=== PATIENT | female | born 1985 | race Caucasian/White ===

== ENCOUNTER 2020-01-17 11:15 | Emergency (ER) | payer OTHER, SELFPAY ==
--- NOTE | ~2020-01-17 | XR_ITS ---
XR hand RT min 3V 01/17/2020 11:25 Indication: Right hand pain Procedure: 3 views right hand Comparison: No prior studies for comparison. Findings: There is an oblique nondisplaced fourth metacarpal fracture. No other fracture. Mild degene rative changes of the first finger. No significant soft tissue abnormality. Impression: 1: Oblique nondisplaced distal diaphyseal fracture of the right fourth metacarpal. Reviewed, dictated and finalized at location A. Impression: 1: Oblique nondisplaced distal diaphyseal fracture of the right fourth metacarp al.
[2020-01-17 11:17] VITALS: BP 118/66; PULSE 52; RESP 18; TEMP 36.1; O2SAT 100
--- NOTE | 2020-01-17 11:17 | ED.UPPEXIN ---
HPI - Extremity Injury (Upper) General Chief Complaint: Extremity Injury, Upper Stated Complaint: Wrist Pain Time Seen by Provider: 01/17/20 11:17 Source: patient and RN notes reviewed Mode of arrival: ambulatory Limitations: no limitations History of Present Illness HPI narrative: This is a 34 years old female presents to the office for an evaluation of right hand injury since yesterday morning. She accidentally fell and her right hand got caught between wrought iron railing. MD complaint: injury to: right and hand Onset (ago): day(s) (1) Other Extremity Injury: Right: fingers (4-5 fingers) Other injuries: none Place: home Severity: moderate Relieving factors: immobilization and rest Exacerbating factors: movement of extremity Context: fall Associated symptoms: denies other symptoms Treatments prior to arrival: NSAIDS (one dose since yesterday) Related Data Home Medications Medication Instructions Recorded Confirmed sertraline 50 mg DAILY 10/09/19 01/17/20 Allergies Allergy/AdvReac Type Severity Reaction Status Date / Time cefazolin Allergy Mild Rash Verified 01/17/20 11:16 Review of Systems Review of Systems: Narrative: CONSTITUTIONAL: Denies feeling ill CARDIOVASCULAR: Denies chest pain RESPIRATORY: Denies dyspnea GASTROINTESTINAL: Denies nausea, vomiting SKIN: Denies skin abrasion/cut MUSCULOSKELETAL: Reports right hand pain, swollen NEUROLOGIC: Denies lightheaded or dizziness prior to accident PMFSH Past Medical History Medical History (Updated 01/17/20 @ 11:53 by PUMA Medina) Depression Social History Social History Gender identity (if verbalized by the patient): Female Comments At time of signature, I agree with nursing past medical, surgical, social and family history. There is no relevant family history pertinent to the presenting complaint. Exam Narrative: Exam Narrative: GENERAL: This is a well-nourished, well-developed patient, in no apparent distress. SKIN: warm, intact with no suspicious lesions or rash, good texture and turgor. NEURO: awake, alert, and oriented to person, place and time. There were no obvious focal neurologic abnormalities. Steady gait EXTREMITIES: The dorsum of the hand is diffusely swollen and tender over fourth and fifth metarcarpals. The skin is intact. Flexion and extension of the fingers is full and strong. ROM of bilateral wrists. Robert Coma Scale Eye Opening: Spontaneous 4 [place] Coma Scale Motor: Obeys Commands 6 Robert Coma Scale Verbal: Oriented 5 Course Vital Signs Vital signs: Vital Signs Temperature 97.0 F L 01/17/20 11:17 Pulse Rate 52 L 01/17/20 11:17 Respiratory Rate 18 01/17/20 11:17 Blood Pressure 118/66 01/17/20 11:17 Pulse Oximetry 100 01/17/20 11:17 Temperature 97.0 F L 01/17/20 11:17 Pulse Rate 52 L 01/17/20 11:17 Respiratory Rate 18 01/17/20 11:17 Blood Pressure 118/66 01/17/20 11:17 Pulse Oximetry 100 01/17/20 11:17 MDM - Extremity Injury (Upper) MDM Narrative Medical decision making narrative: Discharge instructions reviewed with patient, as well as provided in writing per nursing staff. The instructions also include specific and strict return/GO TO THE ER as well as f/u information. All questions have been answered, and the patient deny any further questions with discharge and discharge plan. Differential Diagnosis Differential diagnosis: Likely finger sprain and fracture of hand Imaging Data Attestation: I personally reviewed and interpreted this imaging study as follows: My impression: see report Radiologist's impression: XR hand RT min 3V 01/17/2020 11:25 Indication: Right hand pain Procedure: 3 views right hand Comparison: No prior studies for comparison. Findings: There is an oblique nondisplaced fourth metacarpal fracture. No other fracture. Mild degenerative changes of the first finger. No significant s
== END 2020-01-17 12:12 | disposition home or self-care (01) ==
PROVIDERS: Emergency Provider Nurse Practitioner
DX: S62.304A Unspecified fracture of fourth metacarpal bone, right hand, initial encounter for closed fracture (principal); W19.XXXA Unspecified fall, initial encounter; F32.9 Major depressive disorder, single episode, unspecified
CPT/HCPCS: 29125; 73130; 99214; G0463

== ENCOUNTER 2020-07-01 08:58 | Outpatient (CLI) | payer OTHER, SELFPAY ==
--- NOTE | ~2020-07-01 | MR_ITS ---
EXAMINATION: MR knee LT wo con DATE: 07/01/2020 09:45 INDICATION: Left knee popping and pain. TECHNIQUE: Magnetic resonance imaging (MRI) of the left knee was performed without intravenous contra st. Sequences included axial PD-weighted FS FSE, coronal PD-weighted FSE and PD-weighted FS FSE, sagi ttal PD-weighted FSE, and sagittal T2-weighted FS FSE. COMPARISON: None. FINDINGS: Medial compartment: Medial meniscus is normal. There is cartilage surface irregularity of femoral condyle involving the c entral articular surface. Tibial cartilage is normal. Lateral compartment: Lateral meniscus is normal. There is cartilage surface area of tibial condyle at the central articula r surface. There is deep cartilage fissuring of femoral condyle involving the central articular surfa ce. Patellofemoral compartment: There is deep partial thickness cartilage loss of patellar median ridge and the adjacent aspects of m edial and lateral facets. There is deep partial thickness cartilage loss of central trochlea. Ligaments and tendons: There is a complete tear of anterior cruciate ligament. Posterior cruciate ligament is normal. Medial collateral ligament and lateral collateral ligament complex are normal. There is mild patellar tendi nopathy. Fluid: There is a small knee joint effusion. There is trace fluid in a Askew's cyst. IMPRESSION: 1. Moderate chondrosis of patellofemoral compartment and mild chondrosis of medial and lateral compar tments. 2. Complete tear of anterior cruciate ligament. 3. Small knee joint effusion. Reviewed, dictated and finalized at location A. IMPRESSION: 1. Moderate chondrosis of patellofemoral compartment and mild chondrosis of med ial and lateral compartments. 2. Complete tear of anterior cruciate ligament. 3. Small knee joint effusion.
== END 2020-07-01 08:59 ==
PROVIDERS: PCP Physician Assistant; Visit Provider Internal Medicine
DX: S83.512A Sprain of anterior cruciate ligament of left knee, initial encounter (principal); X58.XXXA Exposure to other specified factors, initial encounter; M25.462 Effusion, left knee
CPT/HCPCS: 73721

== ENCOUNTER 2022-12-09 08:06 | Emergency (ER) | payer OTHER, SELFPAY ==
--- NOTE | ~2022-12-09 | XR_ITS ---
EXAMINATION: XR ankle RT min 3V DATE: 12/09/2022 08:37 INDICATION: Right ankle injury and pain. TECHNIQUE: 4 views of right ankle were obtained. COMPARISON: None. FINDINGS: Bone alignment is normal. No fracture. There is mild osteoarthritis of talonavicular joint. There is an enthesophyte at posterior aspect of calcaneal tuberosity. Ankle soft tissue swelling is noted. IMPRESSION: 1. No fracture. Reviewed, dictated and finalized at location D. [employer] IMPRESSION: 1. No fracture.
[2022-12-09 08:12] VITALS: BP 103/69; PULSE 67; RESP 16; TEMP 36.4; O2SAT 100
--- NOTE | 2022-12-09 08:14 | ED.LOWEXIN ---
HPI - Extremity Injury (Lower) General Chief Complaint: Extremity Injury, Lower Stated Complaint: rt ankle injury Time Seen by Provider: 12/09/22 08:20 Source: patient, RN notes reviewed and old records reviewed Mode of arrival: ambulatory Limitations: no limitations History of Present Illness HPI Narrative: 37 year old female who presents to express care with complaints of falling and injuring her right ankle which occurred yesterday while rock climbing at the gym. She reports pain to outer ankle region with swelling noted and inner ankle pain along medial heel below ankle bone. Patient is able to flex and extend toes but is painful, patient has noted swelling to lateral ankle region. Patient reports that she has been taking Ibuprofen and using ice to her ankle. Patient denies any tingling or numbness to her right foot or toes, with strong pulses to right foot and brisk capillary refill of nail beds of right foot. MD complaint: ankle injury Onset (ago): day(s) (1) Injury: Right: ankle Place: other (at gym) Severity scale (1-10): 6 Relieving factors: cold therapy and rest Exacerbating factors: weight bearing Treatments prior to arrival: cold therapy and other (Ibuprofen) Related Data Home Medications Medication Instructions Recorded Confirmed bupropion HCl 300 mg 24 hr tablet, 300 mg PO DAILY 12/09/22 12/09/22 extended release escitalopram oxalate 20 mg tablet 20 mg PO DAILY 12/09/22 12/09/22 Allergies Allergy/AdvReac Type Severity Reaction Status Date / Time cefazolin Allergy Mild Rash Verified 12/09/22 08:30 Review of Systems Review of Systems: CONSTITUTIONAL: Denies fever, chills, or sweats. CARDIOVASCULAR: Denies chest pain, palpitations, or edema. RESPIRATORY: Denies cough or dyspnea. SKIN: Denies rash or itching. Denies laceration or abrasions MUSCULOSKELETAL: Reports injury to her right ankle rock climbing yesterday at the gym with swelling and discomfort to medial and lateral ankle NEUROLOGIC: Denies numbness, or weakness. All systems reviewed & are unremarkable except as noted in HPI and below PMFSH Past Medical History Medical History (Updated 12/09/22 @ 08:57 by Teresa Rodríguez NP) Depression Endometriosis Surgical History Surgical History (Updated 12/09/22 @ 08:34 by Teresa Rodríguez NP) H/O breast augmentation History of repair of anterior cruciate ligament of right knee Hx of laparoscopy for endometriosis Family History Family History (Updated 12/09/22 @ 08:24 by Teresa Rodríguez NP) Father Hypertension Lung cancer Acute myocardial infarction Mother Hypertension Sibling Arrhythmia Social History Social History (Updated 12/09/22 @ 19:40 by Teresa Rodríguez NP) Smoking status: Never smoker Alcohol intake: current Alcohol use details: social Substance use type: does not use Living arrangements: with family Gender identity (if verbalized by the patient): Female Comments At time of signature, agree with nursing past medical, surgical, social and family history. There is no relevant family history pertinent to the presenting complaint Exam Narrative: GENERAL: Well-appearing, well-nourished, and in no acute distress. HEAD: Normocephalic, atraumatic. EYES: PERRLA and EOMI. ENT: Nares clear, no rhinorrhea or epistaxis. Mucous membranes moist.TM's normal with good light reflex, throat pink with no lesions or exudates. NECK: Supple.no lymphadenopathy CHEST: Clear to auscultation. No respiratory distress.SAO2 100% on room air HEART: Regular rate and rhythm. No murmur heard. Normal peripheral pulses. ABDOMEN: Soft, nontender, nondistended, normal active bowel sounds. EXTREMITIES: Normal range of motion. No edema.Exception noted to right lateral right ankle with pain to bilateral ankle areas with most swelling to lateral aspect of right ankle. SKIN: Warm, dry, no rash. NEURO: No focal deficits. Alert and oriented x3. Course Course Emergency Course: Sherry
== END 2022-12-09 08:59 | disposition home or self-care (01) ==
PROVIDERS: Emergency Provider Registered Nurse; PCP Physician Assistant
DX: S93.401A Sprain of unspecified ligament of right ankle, initial encounter (principal); S96.911A Strain of unspecified muscle and tendon at ankle and foot level, right foot, initial encounter; W19.XXXA Unspecified fall, initial encounter; Y93.31 Activity, mountain climbing, rock climbing and wall climbing; F32.9 Major depressive disorder, single episode, unspecified; N80.9 Endometriosis, unspecified
CPT/HCPCS: 73610; 99213; G0463

== ENCOUNTER 2024-05-12 00:58 | Day surgery (SDC) | payer BC, SELFPAY ==
--- NOTE | 2024-05-06 16:32 | PC.NURSE ---
Report to the Outpatient Waiting Room, entrance under the green pavilion located off [facility], at 1000 on 05-12-24. Planned Procedure Time: 1200. Time changes happen often and if your time is changed the preop area will call you the afternoon before. - You and your visitor will be asked to self-screen and do not enter if you have any COVID symptoms. - A mask is optional within the hospital at this time. Patients may have clear liquids (water, carbonated beverages, clear teas, apple juice) until 3 hours prior to surgery with a maximum of 20 ounces. 0900 - No food from midnight until time of surgery - Infants may have breast milk until 4 hours before surgery, formula 6 hours prior to surgery. - Children will be allowed to drink immediately following surgery. If applicable, please bring a bottle or sippy cup to assist with drinking. Juice, water, soda, and popsicles are readily available. For infants on formula, please bring formula the day of surgery. Pacifiers are allowed. Take the following medications with a SIP of water the morning of surgery: bupropion, desvenlafaxine DO NOT STOP ANY OF YOUR OTHER PRESCRIPTION MEDICATIONS PRIOR TO SURGERY ?EXCEPT THE FOLLOWING Medications to discontinue per physician: N/A Please no make-up, nail argentine, hairspray, perfume, deodorant, or body powder the day of surgery. No jewelry (including any body piercings) or valuables the day of surgery, leave them at home. Please take a shower or bath the night before, or the morning of, surgery with an antibacterial soap. Wear comfortable, loose fitting clothing. Children are encouraged to wear pajamas. - Jewelry must be removed prior to entering the operating room. Rings and piercings that are not removed may be cut off. - The hospital will not accept responsibility for valuables. - Please leave all valuables, including medications, at home the day of surgery. If you are going home after surgery, a licensed stage driver must drive you home. - NO public transportation without another adult if you receive anesthesia. - We recommend that an adult stay with you for 24 hours following discharge. - We also recommend that you do not drive, make important decision, drink alcoholic beverages, or take any drugs that were not prescribed by your health care provider for at least 24 hours after your discharge time. For Pediatric surgeries, we recommend two adults accompany the child home. Follow any additional instructions given to you from your surgeon. If you or anyone in your household have experienced Covid symptoms in the past week, please notify your surgeon or the nurse liaison at the phone number below for possible testing. Telephone instructions given to Eddie Basilio and asked if any additional questions and then verbalized understanding. Patient advised to call surgeon office or pre surgery nurse liaison [phone] if any additional questions.
[2024-05-06 16:37] VITALS: BMI 24.3
[2024-05-12] VITALS (7 sets, daily range): BP systolic 106–118; BP diastolic 63–75; PULSE 52–79; RESP 12–20; TEMP 36.8; O2SAT 99–100
[2024-05-12] MEDS: ACETAMINOPHEN 500 MG TABLET 1000 MG PO (10:55)
[2024-05-12] MEDS: KETOROLAC 15 MG/ML VIAL (*BKC) IV PUSH (11:04)
[2024-05-12 11:19] LABS: BEDSIDEPREGUCG Negative
[2024-05-12] MEDS: LIDOCAINE HCL 1% LOCAL INJ 20 ML VIAL 10 ML INFILTRATE (11:39)
--- NOTE | 2024-05-12 11:41 | P.PNAN_ITS ---
Anes - Initial Pre Proc Eval Procedure: Operation Date: 05/12/24 12:00 Proposed Procedures p Laparoscopic Bilateral Tubal Sterilization with Fallopian Rings - Chay Barnes MD Date/Time: 05/12/24 11:41 Surgeon: Chay Barnes MD Pre Op Diagnosis: desire steril Patient Data Age: 39 Gender: F Height: 1.73 m Weight: 72.55 kg Last Vital Signs Temp 36.8 C 05/12/24 10:28 Pulse 54 L 05/12/24 10:28 Resp 20 05/12/24 10:28 BP 106/65 05/12/24 10:28 Pulse Ox 100 05/12/24 10:28 O2 Del Method Room Air 05/12/24 10:28 Allergies Allergy/AdvReac Type Severity Reaction Status Date / Time cefazolin Allergy Mild Rash Verified 05/12/24 10:22 Home Medications Medication Instructions Recorded Confirmed Type bupropion HCl 100 mg tablet,12 hr 100 mg PO BID 05/06/24 05/12/24 History sustained-release desvenlafaxine succinate 100 mg 100 mg PO DAILY 05/06/24 05/12/24 History tablet,extended release 24 hr Laboratory Tests 05/12/24 10:28 POC Urine HCG, Qual Negative POC Ur Preg QC Yes Patient hx anesthesia problems: none Family hx anesthesia problems: none Results Review: All pre-operative results and documents have been reviewed as part of the pre- operative evaluation. [facility] Past Medical History Medical History Depression Endometriosis Surgical History Surgical History H/O breast augmentation History of repair of anterior cruciate ligament of right knee Hx of laparoscopy for endometriosis Family History Family History Father Hypertension Lung cancer Acute myocardial infarction Mother Hypertension Sibling Arrhythmia Social History Social History Smoking status: Never smoker Second hand tobacco smoke exposure: No Alcohol intake: current Alcohol use details: rarely Substance use: current Substance use type: marijuana Other substance usage details: edibles; occasionally Living arrangements: with family Gender identity (if verbalized by the patient): Female Spiritual care concerns: No Anes - Eval Final PreProcedure Day of Procedure 05/12/24 11:41 Patient weight: normal Heart: regular rate and rhythm Lungs: clear to auscultation Airway: Mallampati scale class II Neurological: alert and oriented Last oral intake: >/= 8 hours ASA classification: II Emergent: no Anesthetic plan: proceed Anesthesia type and monitoring: general ETT and standard monitoring Results Review: All pre-operative results and documents have been reviewed as part of the pre- operative evaluation. Informed Consent: The patient's anesthetic plan and its attendant risks and benefits were discusse d with the patient/family/POA. Questions were solicited and answers provided to the satisfaction of the patient/family/POA.
--- NOTE | 2024-05-12 12:13 | PM.IMHP ---
H&P: HPI History of Present Illness Date/Time: 05/12/24 12:13 Chief Complaint: Here for tubal ligation Narrative: 39 y/o desiring permanent contraception. Review of Systems Review of Systems: All systems reviewed & are unremarkable except as noted in HPI and below PMFSH Past Medical History Medical History Depression Endometriosis Surgical History Surgical History H/O breast augmentation History of repair of anterior cruciate ligament of right knee Hx of laparoscopy for endometriosis Family History Family History Father Hypertension Lung cancer Acute myocardial infarction Mother Hypertension Sibling Arrhythmia Social History Social History Smoking status: Never smoker Second hand tobacco smoke exposure: No Alcohol intake: current Alcohol use details: rarely Substance use: current Substance use type: marijuana Other substance usage details: edibles; occasionally Living arrangements: with family Gender identity (if verbalized by the patient): Female Spiritual care concerns: No Meds Home Medications and Allergies Home Medications Medication Instructions Recorded Confirmed Type bupropion HCl 100 mg tablet,12 hr 100 mg PO BID 05/06/24 05/12/24 History sustained-release desvenlafaxine succinate 100 mg 100 mg PO DAILY 05/06/24 05/12/24 History tablet,extended release 24 hr Allergies Allergy/AdvReac Type Severity Reaction Status Date / Time cefazolin Allergy Mild Rash Verified 05/12/24 10:22 Vital Signs Vital Signs - 24 hr 05/12/24 10:28 Temperature 36.8 C Pulse Rate 54 L Respiratory Rate 20 Blood Pressure 106/65 Pulse Oximetry 100 Oxygen Delivery Room Air Exam Const: Orientation/consciousness: patient oriented x3 Other: Well-developed, well-nourished female in no acute distress. Neck: Thyroid: thyroid normal Lymphatic: no lymphadenopathy noted (in neck, axilla or inguinal nodes) Resp: Effort & Inspection: normal respiratory effort Auscultation: clear to auscultation bilaterally Cardio: Rate: regular rate Rhythm: regular rhythm Heart sounds: S1 normal heart sound present and S2 normal heart sound present GI: Other: ABD: Soft, nontender, nondistended. No guarding or rebound tenderness. No hepatosplenomegaly. : General: Yes no CVA tenderness Other: External genitalia: normal female hair distribution, without lesion. Urethral meatus: no lesion, non prolapsed. Bladder: no mass, nontender Vagina: well-estrogenized, without lesion or discharge. No cystocele or rectocele. Cervix: no lesion or discharge. Uterus: small, anteverted, freely mobile, nontender Adnexa: no mass or tenderness. Anus/perineum: no lesions, nontender Back/Spine/Pelvis: Back: no CVA tenderness Skin: General skin exam: normal color and no rashes or lesions noted Neuro: General: patient oriented x3 Extrem: Other: Extremities: nontender with no edema Psych: Mental Status: mental status grossly normal Affect: normal affect Assessment and Plan Assessment and plan (1) Unwanted fertility: Code(s): Z30.09 - Encounter for other general counseling and advice on contraception Status: Acute Assessment and Plan: A: Desired sterility. P: She understands there are temporary methods of contraception available to her. She understands that there are nonsurgical options as well as surgical options. She understands that tubal ligation will render her permanently sterile. She understands that there is a failure rate associated with tubal ligation, as well as an inherent ectopic gestation risk. Furthermore, she understands risks of surgery to include risks of anesthesia, risks of pain, infection, bleeding,
--- NOTE | 2024-05-12 12:14 | WPDHPUPDATE1 ---
History and Physical Update Update Date/Time: 05/12/24 12:14 History and Physical has been reviewed, including an updated exam of the patient. There are NO changes in the patient's condition. Risks, benefits, and alternatives have been discussed and questions answered. Patient agrees to proceed with procedure.
--- NOTE | 2024-05-12 12:54 | W.PM.PROC2 ---
Procedure Note - Detailed Date of Procedure 05/12/24 Pre-op Diagnosis Desired sterility Post-op Diagnosis Same Procedure Performed Laparoscopic bilateral tubal ligation with Falope rings Surgeon Chay Barnes MD Anesthesia General and Local (1% lidocaine) Findings Normal-appearing RUQ anatomy. Vermiform appendix not visualized. Unremarkable uterus, bilateral tubes and ovaries, anterior and posterior cul de sac, bilateral round and uterosacral ligaments. Description of Procedure The patient was taken to the operating room where general endotracheal anesthesia was administered. She was prepared and draped in the usual sterile fashion in dorsal lithotomy position. The bladder was drained with a red rubber catheter. A sterile speculum was placed into the vagina. The anterior lip of the cervix was grasped with a single-tooth tenaculum. The acorn uterine manipulator was placed. The speculum was withdrawn. Gloves were changed and attention was turned the abdomen. An infraumbilical skin incision was made with a scalpel. The abdomen was tented and a 5mm bladeless trocar was advanced under direct laparoscopic visualization. Pneumoperitoneum was administered using carbon dioxide gas. A survey of the pelvis and abdomen revealed the findings noted above. A second skin incision was made in the midline above the symphysis pubis and an 8mm bladeless trocar was advanced under direct laparoscopic visualization. The fallopian tube on the right side was followed out to the fimbriated end for identification. It was then grasped in the midportion with the Falope ring applicator. The Falope ring was tented applied. A good loop of tube was noted to be distal to the ring. Hemostasis was excellent. The device was reloaded and the left tube was similarly identified and ligated. An excellent application was noted here as well. A total of 4mL of 1% lidocaine was infiltrated into the serosa of the proximal tubes for postoperative anesthesia. The ports were withdrawn. The gas was allowed to escape. The skin incisions were reapproximated using interrupted subcuticular sutures of 4 0 Vicryl. Dermaflex was applied externally. The vaginal instrumentation was withdrawn and hemostasis was excellent here as well. Sponge, lap, needle and instrument counts were correct. The patient was awakened and taken to recovery room in stable condition. I was present and scrubbed through the entire procedure. Implants Falope rings x 2 Estimated Blood Loss 5 Drains No Packing No Pathology None sent Complications None Condition Stable Disposition PACU
[2024-05-12] MEDS: LACTATED RINGERS 1,000 ML 30 ML IV CONT ×2 (13:00→13:05)
[2024-05-12] MEDS: fentaNYL CITRATE INJ (*CRX) 100 MCG/2 ML VIAL 25 MCG IV PUSH ×2 (13:18→13:28)
[2024-05-12] MEDS: oxyCODONE HCL (*CRX) 5 MG TAB IR PO (14:10)
== END 2024-05-12 14:44 | disposition home or self-care (01) ==
PROVIDERS: Visit Provider Obstetrics & Gynecology
PROC: (CPT 58671; principal; 2024-05-12 12:00)
DX: Z30.2 Encounter for sterilization (principal); F32.A Depression, unspecified; F12.90 Cannabis use, unspecified, uncomplicated
CPT/HCPCS: 58671; A4264; A9270; J0330; J0461; J1100; J1885; J2250; J2405; J2704; J3010; J7120

== ENCOUNTER 2025-01-03 12:42 | Outpatient (CLI) | payer BC, SELFPAY ==
--- OUTSIDE RECORDS SUMMARY | 2025-01-03 13:45 | XMS_ITS | Referral Summary ---
Author Organization [facility] Medical Office Building B Address [address] [place] [address] Care Team Providers Care Regional Service Manager Name Role Phone Vanessa Melgoza Primary Care Pr ovider Allergies Active Allergy Reactions Criticality Noted Date Comments Cefazolin Hives Medium 09/28/2012 Hives Medications sertraline (ZOLOFT) 50 mg tablet sertraline 50 mg tablet TK 1 T PO QD Active buPROPion SR (WELLBUTRIN SR) 150 mg 12 hr tablet Take 1 tablet (150 mg total) by mouth daily 4 Active buPROPion XL (WELLBUTRIN XL) 300 mg 24 hr tablet 4 Active desvenlafaxine ER 50 mg 24 hr tablet Take 1 tablet (50 mg total) by mouth daily 4 Active lidocaine viscous (XYLOCAINE) 2 % solutionIndicat ions:Sore throat Apply 10 mL to the mouth or throat every 6 (six) hours as needed (sore throat) Apply to lesions every six hours as needed for discomfort. Do not exceed maximum dose of of 4 times daily. 100 mL 4 Active Active Problems No known active problems Social History Tobacco Use Types Packs/Day Years Used Date Smoking Tobacco: Never Smokeless Tobacco: Never Tobacco Cessation:Counseling Given: Not Answered Personal Safety Answer Date Recorded Getting School Help Needed Not on file 10/18 Comments Unknown Sex and Gender Information Value Date Recorded Sex Assigned at Not on file Legal Sex Female 8:22 PM MAINTENANCE PLANNING CLERK Gender Identity Not on file Sexual Orientation Not on file Last Filed Vital Signs Vital Sign Reading Time Taken Comments Blood Pressure 116/74 12/01/2023 8:09 AM MAINTENANCE PLANNING CLERK Pulse 67 12/01/2023 8:09 AM MAINTENANCE PLANNING CLERK Temperature 36.8 C (98.3 F) 12/01/2023 8:09 AM MAINTENANCE PLANNING CLERK Respiratory Rate 14 12/01/2023 8:09 AM MAINTENANCE PLANNING CLERK Oxygen Saturation 98% 12/01/2023 8:09 AM MAINTENANCE PLANNING CLERK Inhaled Oxygen Concentration - - Weight 76.6 kg (168 lb 14.4 oz) 12/01/2023 8:09 AM MAINTENANCE PLANNING CLERK Height 172.7 cm (5' 8 ) 12/01/2023 8:09 AM MAINTENANCE PLANNING CLERK Body Mass Index 25.68 12/01/2023 8:09 AM MAINTENANCE PLANNING CLERK Plan of Treatment Not on file Insurance [facility]US [facility] Address: [address] [address] [place] [address] [facility]O Address: [address] [address] [place] [address] Care Teams Regional Service Manager Relationship Specialty Start Date End Date Vanessa Melgoza PA PCP - General Physician Assignment Editor 06/02/20
--- OUTSIDE RECORDS SUMMARY | 2025-01-03 13:45 | XMS_ITS | Clinical Summary ---
Author Organization [facility] [employer] Address [address] [place] [address] Care Team Providers Care Pump Installation And Servicer Name Role Phone Unavailable Primary Care Provider Unavailabl e Source Comments [facility],non-owned Affiliates and Associated Physician Practices is amultiple site organization consisting of ambulatory clinics and hospital sitesin [place], [place], [place] and [place]. This disclosure is being madepursuant to the Care Everywhere program and may not contain all information available regarding this patient. Last updated 18.[facility] [employer] Immunizations Name Administration Dates Next Due FLU VACCINE QUAD IIV4 PF ID 06/24/2016 Social History Tobacco Use Types Packs/Day Years Used Date Smoking Tobacco: Never Assessed Sex and Gender Information Value Date Recorded Sex Assigned at Not on file Gender Identity Not on file Sexual Orientation Not on file Plan of Treatment Health Maintenance Due Date Last Done Comments HIV SCREENING 2002 HEPATITIS C SCREENING 02/26/2005 DTAP/TDAP/TD VACCINES (1 - Tdap) 2006 HEPATITIS B VACCINE (1 of 3 - 19+ 3-dose series) 2006 COVID-19 VACCINE ( - 2023-2 5 season) 2024 INFLUENZA VACCINE (#1) 2024 06/24/2016 DEPRESSION SCREENING 10/06/2024 ZOSTER VACCINE (1 of 2) 2037 HIB VACCINE Aged Out No longer eligi ble based on patient's age to complete this topic HPV VACCINE Aged Out No longer eligi ble based on patient's age to complete this topic MENINGOCOCCAL (Group B) VACC INE SHARED DECISION-MAKING Aged Out No longer eligibl e based on patient's age to complete this topic MENINGOCOCCAL GROUPS A/C/Y/W VACCINE Aged Out No longer eligible b ased on patient's age to complete this topic PNEUMOCOCCAL VACCINE Aged Out No long er eligible based on patient's age to complete this topic
--- OUTSIDE RECORDS SUMMARY | 2025-01-03 13:45 | XMS_ITS | Clinical Summary ---
Author Organization [facility] Medical Office Building B Address [address] [place] [address] Care Team Providers Care Bottled Beverage Inspector Name Role Phone Vanessa Melgoza Primary Care [...] Active Active Problems No known active problems Surgical History Surgery Date Site/Laterality Comments KNEE SURGERY COMBINED AUGMENTATION MAMMAPLASTY AND ABDOMINOPLASTY Medical History Medical History Date Comments MRSA (methicillin resistant Staphylococcus aureu s) Family History Medical History Relation Name Comments Alcohol abuse Other Arthritis Other Cancer Other Heart disease Other Hypertension Other Stroke Other Relation Name Status Comments Other Social History Tobacco Use Types Packs/Day Years Used Date Smoking Tobacco: Never Smokeless Tobacco: Never Tobacco Cessation:Counseling Given: Not Answered Personal Safety Answer Date Recorded Getting School Help Needed Not on file 10/18 Comments Unknown Sex and Gender Information Value Date Recorded Sex Assigned at Not on file Legal Sex Female 8:22 PM PUBLIC ACCOUNTANT Gender Identity Not on file Sexual Orientation Not on file Obstetrics History Last Filed Vital Signs Vital Sign Reading Time Taken Comments Blood Pressure 116/74 12/01/2023 8:09 AM PUBLIC ACCOUNTANT Pulse 67 12/01/2023 8:09 AM PUBLIC ACCOUNTANT Temperature 36.8 C (98.3 F) 12/01/2023 8:09 AM PUBLIC ACCOUNTANT Respiratory Rate 14 12/01/2023 8:09 AM PUBLIC ACCOUNTANT Oxygen Saturation 98% 12/01/2023 8:09 AM PUBLIC ACCOUNTANT Inhaled Oxygen Concentration - - Weight 76.6 kg (168 lb 14.4 oz) 12/01/2023 8:09 AM PUBLIC ACCOUNTANT Height 172.7 cm (5' 8 ) 12/01/2023 8:09 AM PUBLIC ACCOUNTANT Body Mass Index 25.68 12/01/2023 8:09 AM PUBLIC ACCOUNTANT Plan of Treatment Health Maintenance Due Date Last Done Comments Cervical Cancer Screening 1987 Depression Screening 1987 Hepatitis C Screening 1987 Varicella Vaccines (1 of 2 - 13+ 2-dose series) 2000 Hepatitis B Screening 2005 Regular Well Visit/Exam 18-64 2005 Influenza Vaccine (#1) 2024 8, 06/24/2016 DTaP/Tdap/Td Vaccine (3 - Td or Tdap) 01/11/2029 01/11/2019, 11/20/2016 HPV Vaccines Aged Out No longer eligi ble based on patient's age to complete this topic Pneumococcal vaccine <65 Aged Out No longer eligible based on patient's age to complete this topic Insurance [address] [facility] [place] [id number] CHOICE PLUS [facility] CHOICE PLUS [place] [id number] Care Teams Bottled Beverage Inspector Relationship Specialty Start Date End Date Vanessa Melgoza PA PCP - General Physician Furnace Roaster 06/02/20
--- OUTSIDE RECORDS SUMMARY | 2025-01-03 13:45 | XMS_ITS | Data Portability ---
Author Organization [place] [facility], Main Office Address [address] [place] [address] Care Team Providers Care Mechanical Shovel Operator Name Role Phone SIMON NIELSEN Primary Care Provider SIMON NIELSEN Referring Provider [phone] Assessment Encounter Date Assessment Date Assessment LastModified by Organization Details LastModified Time 12/16/2022 12/16/2022 37-year-old patient presents today with right ankle injury after falling 15 ft while rock climbing a week ago. She felt immediate pain and experienced swelling and bruising throughout the day. Since the injury she has tried resting and ice with minimal relief. She has been baring weight and walking on her toes on the right side, but is in unable to walk heel to toe without extreme pain. Review of systems per patient questionnaire Imaging: X-rays of the right foot and ankle show no bony abnormality, no fracture. Physical exam: Ecchymosis and swelling on medial and lateral sides. Tenderness to palpation over tendons on medial and lateral sides. No pain over bony structures . No tenderness elsewhere around the foot. She is able to stand on her right side without pain. She is able to perform ROM with some discomfort and stiffness. She is neurovascular intact with sensation intact to light touch throughout all distributions. She is able wiggle her toes. Brisk cap refill with palpable DP pulses. At this time we will place her in a walking boot. She may bare weight as tolerated on right side. We will see her back in 2 weeks to check her progress. At that time if she is still extremely painful we may order a CT scan. She may also benefit from physical therapy if she continues to have stiffness. She is in agreement with this plan. [email or web address] Not available 12/16/2022 12:15:00 Plan of Treatment Reminders Order Date Submit Date Provider Last Modified By Organization Details Last Modified Time Details Appointments None recorded. Lab vitamin B12 + folate, serum or blood 2022 023 [facility], [address], [address], [place], [address], 05:01:27 CMP, serum or plasma 2022 023 [facility], [address], [address], [place], [address], 05:01:27 CBC w/ auto diff 2022 023 [facility], [address], [place], [address], 05:01:27 TSH + free T4, serum 2022 023 [facility], [address], [place], [address], 05:01:27 lipid panel, serum 2022 023 [facility], [address], [place], [address], 3 05:01:27 Referral None recorded. Procedures None recorded. Surgeries None recorded. Imaging None recorded. Medication Orders Strattera 40 mg capsule 2022 023 [id number], [address], [place], [place], [id number], 12:39:04 Patient TargetsNo targets recorded. Patient InstructionsNo instructions recorded. Reason for Referral None Reported. Results Created Date Observation Date Name Description Value Unit Range Abnormal Flag Note LastModifiedBy Organization Detail LastModifiedTime 12/12/19 23 XR, ankle No observ ation record ed. [email or web address] Not Available 2022 17:19:37 Result Notes None recorded. Problems Name Problem SNOMED Code Status Onset Date Resolution Date Notes Provider Name and Address Organization Details Recorded Time Mixed anxiety and depressive disorder 932026394 Active 2021 Not Available [facility] 3 21:51:47 External hemorrhoids 48138817 Active 2021 Not Available [facility] 3 21:51:47 Anxiety 70055764 Active 2021 Not Available [facility] 3 21:51:47 Vitamin B12 deficiency (non anemic) 73589277 Active 2021 Not Available [facility] 3 21:51:47 Poor focus 405576963 Active 2022 GREGORY Chavez [address] [employer], [place], [address] , [email or web address] 3 12:36:57 Weight gain 9310500 Active 2023 GREGORY Chavez [address], [place], [address] , [employer] 4 14:50:16 Problem Notes None recorded. Procedures Surgical History Date Name Laterality Status Provider Name and Address Organization Details Recorded Time endometrial resection completed Not Available [facility] 12/04/2022 21:50:07 Knee Surgery completed Not Available [facility] 12/04/2022 21:50:07 augmentation mammoplasty completed Not Available [facility] 12/04/2022 21:50:07 Imaging Results Imaging Date Name Status LastModified by Organiz ation Details LastModified Time 12/11/2022 XR, ankle completed Information no t available 12/11/2022 17:19:37 Procedure Notes None recorded. Medical Equipment None Reported. Allergies Allergen ID Allergen Name Allergen Category Reaction Reaction Severity Criticality Documentation Date Start Date Code Code System Note Provider Name and Address Organization Details Recorded Time 86524 cefazolin sodium medicatio n Not available Not available Not available 12/16/2022 1 [facility] Cristiane mercer, [email or web address] 3 11:01:59 Medications Name Sig Start Date Stop Date Status Note LastModified by Organization Details LastModified Time amoxicillin 500 mg capsule TK ONE C PO Q 6 H X 7 DAYS 06/02 completed Not Available Not Available Not Available hydrocortis one-pramoxi ne 2.5 %-1 % rectal cream APPLY EXTERNALL Y TO RECTAL AREA TWICE DAILY NEEDED 12/16 completed Not Available Not Available Not Available sertraline 100 mg tablet Take 1 tablet every day by oral route for 90 days. 04/16 completed Not Available Not Available Not Available amoxicillin 500 mg tablet TAKE 1 TABLET BY MOUTH EVERY 8 HOURS UNTIL ALL TAKEN 04/06 completed Not Available Not Available Not Available cyanocobala min (vit B-12) 1,000 mcg/mL injection solution Inject 2 mL every month by subcutane ous route. active [facility]#[id number]- [phone]- 00 Not Available Not Available Not Available lorazepam 1 mg tablet 04/16 completed Not Available Not Available Not Available sertraline 50 mg tablet TK 1 T PO QD 04/06 completed Not Available Not Available Not Available escitalopra m 20 mg tablet TAKE 1 TABLET BY MOUTH EVERY DAYSTOP SERTRALIN E 2022 active Not Available Not Available Not [employer] atomoxetine 40 mg capsule TAKE 1 CAPSULE BY MOUTH EVERY DAY 2022 active Not Available Not Available Not [employer] bupropion HCl XL 300 mg 24 hr tablet, extended release TAKE 1 TABLET BY MOUTH EVERY DAYSTOP 150MG DOSE 2022 active Not Available Not Available Not [employer] bupropion HCl XL 150 mg 24 hr tablet, extended release TAKE 1 TABLET BY MOUTH EVERY DAY IN THE MORNING 04/16 completed Not Available Not Available Not Available ID NOW COVID-19 Test Kit TEST DIRECTED 04/06 completed Not Available Not Available Not Available Vitals Date Recorded Body mass index (BMI) Body height Oxygen saturation Oxygen saturation in Arterial blood by Pulse oximetry Heart rate Respiratory rate Body weight Systolic blood pressure Diastolic blood pressure Provider Name and Address Organization Details Last Updated DateTime 2 24.9 kg/m2 172.72 cm 98 % 98 % 55 /min 16 /min 92827.4 3 g 120 mm[Hg] 70 mm[Hg] Not Available [facility] 3 21:51:12 Date Recorded Body mass index (BMI) Body height Oxygen saturation Oxygen saturation in Arterial blood by Pulse oximetry Heart rate Respiratory rate Body temperature Body weight Systolic blood pressure Diastolic blood pressure Provider Name and Address Organization Details Last Updated DateTime 2 24.3 kg/m2 172.72 cm 97 % 97 % 106 /min 16 /min 97.9 [degF] 67842.3 4 g 118 mm[Hg] 70 mm[Hg] Not Available [facility] 3 21:51:12 Date Recorded Body mass index (BMI) Body height Oxygen saturation Oxygen saturation in Arterial blood by Pulse oximetry Heart rate Respiratory rate Body weight Systolic blood pressure Diastolic blood pressure Provider Name and Address Organization Details Last Updated DateTime 2 23.4 kg/m2 172.72 cm 98 % 98 % 94 /min 16 /min 22112.2 2 g 118 mm[Hg] 80 mm[Hg] Not Available [facility] 3 21:51:12 Date Recorded Body height Body mass index (BMI) Body weight Provider Name and Address Organization Details Last Updated DateTime 12/16/2022 175.26 cm 22.2 kg/m2 34023.86 g Cristiane Carreon [email or web address] 12/16/2022 11:00:49 Date Recorded Body height Body temperature Body mass index (BMI) Body weight Respiratory rate Oxygen saturation Oxygen saturation in Arterial blood by Pulse oximetry Heart rate Systolic blood pressure Diastolic blood pressure Provider Name and Address Organization Details Last Updated DateTime 3 175.26 cm 98 [degF] 23 kg/m2 82586.4 1 g 16 /min 98 % 98 % 82 /min 118 mm[Hg] 72 mm[Hg] JAMES Cook [email or web address] 3 12:06:36 Social History Question Answer Notes LastModified by Organizat ion Details LastModified Time Tobacco Smoking Status Never Smoker Not Available [facility] 12/04/2022 21:49:57 What Is Your Level Of Alcohol Consumption? Moderate [id number] Information not available 12/04/2022 What Is Your Level Of Caffeine Consumption? Heavy MIGRATION.[id number] 8574 Information not available 12/04/2022 How Much Tobacco Do You Chew? None MIGRATION.077481 2499 Information not available 12/04/2022 In The 14 Days Before Symptom Onset, Have You Had Close Contact With A Laboratory-confir med COVID-19 While That Case Was Ill? No MIGRATION.[id number] 1603 Information not available 12/04/2022 In The 14 Days Before Symptom Onset, Have You Had Close Contact With A Person Who Is Under Investigation For COVID-19 While That Person Was Ill? No [id number].[id number] 1863 Information not available 12/04/2022 Are You Currently Employed? Yes [email or web address] Information not available 01/21/2023 What Type Of Diet Are You Following? REGULAR MIGRATION.121465 2099 Information not available 12/04/2022 Do You Or Have You Ever Used E-cigarettes Or Vape? 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 No MIGRATION.112115 3098 Information not available 12/04/2022 Do You Use Insect Repellent Routinely? No MIGRATION.190740 8500 Information not available 12/04/2022 What Was The Date Of Your Most Recent Tobacco Screening? 12/16/2022 [email or web address] Information not available 12/16/2022 What Is Your Relationship Status? MIGRATION.034497 7470 Information not available 12/04/2022 Do You Use Your Seat Belt Or Car Seat Routinely? Yes MIGRATION.334363 5723 Information not available 12/04/2022 Do You Have Smoke And Carbon Monoxide Detectors In Your Home? Yes MIGRATION.934013 0902 Information not available 12/04/2022 Do You Or Have You Ever Used Smokeless Tobacco? Never Used Smokeless Tobacco MIGRATION.707234 0263 Information not available 12/04/2022 How Much Tobacco Do You Smoke? No MIGRATION.605751 7676 Information not available 12/04/2022 Do You Use Any Illicit Or Recreational Drugs? No MIGRATION.360891 9414 Information not available 12/04/2022 Do You Use Sunscreen Routinely? Yes MIGRATION.631794 2267 Information not available 12/04/2022 How Many Years Have You Smoked Tobacco? 0 MIGRATION.295460 5613 Information not available 12/04/2022 Have You Recently Traveled Abroad? No MIGRATION.538041 7069 Information not available 12/04/2022 Do You Have Any Dietary Restrictions? No MIGRATION.166849 6573 Information not available 12/04/2022 Do You Or Have You Ever Used Any Other Forms Of Tobacco Or Nicotine? No MIGRATION.555452 3762 Information not available 12/04/2022 Sex: Unknown Functional Status Question Answer Note LastModified by Organizat ion Details LastModified Time What is your exercise level? Moderate [id number] Information not available 12/04/2022 Mental Status None recorded. Family History Relationship Description Onset Age of this Age Resolved Age Notes LastModified by Organization Details LastModified Time Mother Hypertensive disorder [id number] Not available 12/04/2022 21:50:09 Mother Alcoholism [email or web address] Not avail able 12/16/2022 10:46:28 Mother Gastroesopha geal reflux disease [email or web address] Not available 12/16 10:46:28 Father Heart disease [id number] Not available 12/04/2022 21:50:09 Father Alcoholism [email or web address] Not avail able 12/16/2022 10:46:28 Father Family history of malignant neoplasm [email or web address] Not available 12/16 11:03:26 Father Hypertensive disorder [email or web address] Not available 12/16 11:03:34 Unspecified Relation Cerebrovascu lar accident [email or web address] Not available 10:46:28 Maternal Grandmother Complication of anesthesia [email or web address] Not available 12/04 11:03:09 Medical History Condition Response ANXIETY DISORDER Y Gynecological History Statement/Question Response Menses Monthly Y How many live births 2 Date of Last Pap 08/06/2019 Sexually Active? Y Obstetrics History GPAL:G 2 P 0 0 0 2 Type Value Living 2 Total 2 Past Encounters Encounter ID Performer Location Encounter Start Date Encounter Closed Date Diagnosis/Indication Diagnosis SNOMED-CT Code Diagnosis ICD10 Code Diagnosis Note [id number] [facility] [address] [place] [address] 04/06/2021 00:00:00 04/22/2021 00:31:23 [id number] [facility] [address] [place] [address] 05/14/2021 00:00:00 06/05/2021 06:55:39 [id number] [facility] [address] [place] [address] 06/27/2021 00:00:00 06/27/2021 17:45:32 [id number] [facility] [address] [place] [address] 04/16/2022 00:00:00 05/05/2022 16:39:56 [id number] [facility] [address] [place] [address] 05/24/2022 00:00:00 06/02/2022 13:37:08 [id number] [facility] [address] [place] [address] 09/24/2022 00:00:00 10/02/2022 11:00:57 [id number] Fariba Oden NP [facility] [address] [facility] [place] [address] 12/16/2022 10:43:15 12/16/2022 11:30:39 [id number] GREGORY Chavez [facility] [address] [place] [address] 01/22/2023 12:01:27 01/22/2023 12:46:21 Vitamin B12 deficiency (non anemic) 60430182 E53.8 screening b12 and folate due. Cholesterol screening 27 2098262 Z13.220 fasting lipids due Long-term drug therapy 516127785 Z79.899 routine CBC, CMP and TFTs due Poor focus 963787103 H52 .7 trial of strattera 40mg daily Mixed anxi ety and depressive disorder 017548469 F41.8 stable on lexapro 20mg daily and wellbutrin XL 300mg daily. Adult heal th examination 467959831 Z00.01 well exam completed Health Concerns Section Related Observation LastModified by Organization Detai ls LastModified Time None Recorded Concern Status LastModified by Organization Details LastModified Time None Recorded Advance Directives Directive None Recorded Payers Encounter Date Sequence Insurance Name Policy Number Policy Becerra Covered Member ID Becerra Member ID Guarantor Name 12/16/2022 1 [facility] [id number] Eddie Basilio [id number] Eddie Basilio 01/22/2023 1 [facility] [id number] Eddie Basilio [id number] Eddie Basilio Notes Date Note Type Note Provider Name and Address Organization Details Recorded Time 04/16/2022 text/html Anxiety/Depressi onRep orted bypatient.Quality:Cool snt matter time of day Severity:denies suicidal ideations;unable to maintain relationships;interfe rence with household activities;interferen ce with work Duration:symptoms lasting over 2 weeks Onset/Timing:still present Context:major life stressors Modifying Factors:medications as directed Associated Symptoms:denies homicidal ideations; no significant weight gain; no significant weight loss; no visual/auditory hallucinations; no delusions; no shortness of breath; no crying spells; no panic; no isolation; appetite good; energy good; no apathy; maintaining functionality;emotion al lability;high irritability;hostilit y;anxiety;depression; restlessness/agitatio n;feeling guilty;inability to make decisions;low self-esteem;despair/h opelessness;social withdrawal;poor concentration Not Available [facility] 05/05/2022 16:39:56 05/24/2022 text/html Anxiety/Depressi onRep orted bypatient.Quality:Cool snt matter time of day Severity:denies suicidal ideations;unable to maintain relationships(depends on the day);interference with household activities;interferen ce with work Duration:symptoms lasting over 2 weeks Onset/Timing:still present Context:major life stressors Modifying Factors:medications as directed Associated Symptoms:denies homicidal ideations; no significant weight gain; no significant weight loss; no visual/auditory hallucinations; no delusions; no shortness of breath; no crying spells; no panic; no isolation; appetite good; energy good; no apathy; maintaining functionality;emotion al lability;high irritability;anxiety; depression;feeling guilty;inability to make decisions;low self-esteem;despair/h opelessness;social withdrawal;poor concentrationNotes:Pt is here after increasing her bupropion to 300mg. She says its helping somewhat. Not Available [email or web address] 06/02/2022 13:37:08 09/24/2022 text/html Generic HPI TemplateReported bypatient.Notes:Pt is here bc she has been having hemorrhoids x3 years. States she got them every . Usually they went away on her own but now this time it is external. She says it is bleeding at times. Not Available [email or web address] 10/02/2022 11:00:57 01/22/2023 text/html Anxiety/Depressi onRep orted bypatient.Quality:cool snt matter time of day. Severity:denies suicidal ideations; able to maintain relationships;interfe rence with household activities;interferen ce with sleep;interference with work Duration:symptoms lasting over 2 weeks Onset/Timing:still present Context:no major life stressors Modifying Factors:rx Associated Symptoms:denies homicidal ideations; no significant weight gain; no significant weight loss; no visual/auditory hallucinations; no delusions; no shortness of breath WellnessWe didn't do her B12 injection b/c she hasn't had one since May and last set of lab were normal. GREGORY Chavez [address] [place] [address], [place], [address], [email or web address] 01/30/2023 22:58:31 OBGyn Episode No OBEpisode recorded.
== END 2025-01-03 12:43 | disposition home or self-care (01) ==
LOC: CHSIMG 12:45
PROVIDERS: Visit Provider Obstetrics & Gynecology
DX: Z12.31 Encounter for screening mammogram for malignant neoplasm of breast (principal)
CPT/HCPCS: 99199

== ENCOUNTER 2025-01-10 08:48 | Outpatient (CLI) | payer BC, SELFPAY ==
--- NOTE | ~2025-01-10 | MMUS_ITS ---
EXAMINATION: MM diag jeffery implant BI w uma, US breast BI complete HISTORY: Breast pain TECHNIQUE: Additional 3-D tomosynthesis images of the breasts were performed and synthetic 2-D images were generated. CAD analysis was submitted and interpreted. High resolution bilateral complete breas t ultrasound was performed. COMPARISON: None BREAST PARENCHYMAL COMPOSITION: Not dense: There are scattered areas of fibroglandular density. FINDINGS: MAMMOGRAPHIC FINDINGS: There are no suspicious masses, calcifications or architectural distortion in either breast to sugges t malignancy. ULTRASOUND: Complete US of all 4 quadrants of the breast/s and retroareolar region was reviewed. Right breast: At 6:00, 3 cm from the nipple there is an oval hypoechoic mass measuring 8 x 5 x 3 mm w ith parallel orientation, circumscribed margins, no posterior features and no internal vascularity, p ossibly an intramammary lymph node, although likely benign. Left breast: Normal heterogeneous echotexture without focal solid or cystic mass. IMPRESSION: 1. Probable benign right breast mass at 6:00, 3 cm from the nipple measuring 8 x 5 x 3 mm. No evidenc e for malignancy in the left breast. 2. Recommend 6 month follow-up Limited right breast ultrasound BI-RADS category 3, probably benign findings. Reviewed, dictated and finalized at location A. IMPRESSION: 1. Probable benign right breast mass at 6:00, 3 cm from the nipple measuring 8 x 5 x 3 mm. No evidence for malignancy in the left breast. 2. Recommend 6 month follow-up Limited right breast ultrasound BI-RADS category 3, probably benign findings.
--- OUTSIDE RECORDS SUMMARY | 2025-01-10 09:25 | XMS_ITS | Clinical Summary ---
Author Organization [facility] Medical Office Building B Address [address] [place] [address] Care Team Providers Care Tool Design Engineer Name Role Phone Vanessa Melgoza Primary Care [...] on file Legal Sex Female 8:22 PM CAR DUMPER Gender Identity Not on file Sexual Orientation Not on file Obstetrics History Last Filed Vital Signs Vital Sign Reading Time Taken Comments Blood Pressure 116/74 12/01/2023 8:09 AM CAR DUMPER Pulse 67 12/01/2023 8:09 AM CAR DUMPER Temperature 36.8 C (98.3 F) 12/01/2023 8:09 AM CAR DUMPER Respiratory Rate 14 12/01/2023 8:09 AM CAR DUMPER Oxygen Saturation 98% 12/01/2023 8:09 AM CAR DUMPER Inhaled Oxygen Concentration - - Weight 76.6 kg (168 lb 14.4 oz) 12/01/2023 8:09 AM CAR DUMPER Height 172.7 cm (5' 8 ) 12/01/2023 8:09 AM CAR DUMPER Body Mass Index 25.68 12/01/2023 8:09 AM CAR DUMPER Plan of Treatment Health Maintenance Due Date Last Done Comments Cervical Cancer Screening 1987 Depression Screening 1987 Hepatitis C Screening 1987 Varicella Vaccines (1 of 2 - 13+ 2-dose series) 2000 Hepatitis B Screening 2005 Regular Well Visit/Exam 18-64 2005 Influenza Vaccine (Season Ended) 2025 07/02/2018, 06/24/2016 DTaP/Tdap/Td Vaccine (3 - Td or Tdap) 01/11/2029 01/11/2019, 11/20/2016 HPV Vaccines Aged Out No longer eligi ble based on patient's age to complete this topic Pneumococcal vaccine <65 Aged Out No longer eligible based on patient's age to complete this topic Insurance 2028 [facility] [address] [facility] Address: [address] [address] [place] [address] [facility] Address: [address] [address] [place] [phone] Care Teams Tool Design Engineer Relationship Specialty Start Date End Date Vanessa Melgoza PA PCP - General Physician Campground Attendant 06/02/20
--- OUTSIDE RECORDS SUMMARY | 2025-01-10 09:25 | XMS_ITS | Referral Summary ---
Author Organization [facility] Medical Office Building [address] Address [address] [place] [address] Care Team Providers Care Electric Motor Assembler And Tester Name Role Phone Vanessa Melgoza Primary Care [...] on file Legal Sex Female 8:22 PM BENZENE WASHER OPERATOR Gender Identity Not on file Sexual Orientation Not on file Last Filed Vital Signs Vital Sign Reading Time Taken Comments Blood Pressure 116/74 12/01/2023 8:09 AM BENZENE WASHER OPERATOR Pulse 67 12/01/2023 8:09 AM BENZENE WASHER OPERATOR Temperature 36.8 C (98.3 F) 12/01/2023 8:09 AM BENZENE WASHER OPERATOR Respiratory Rate 14 12/01/2023 8:09 AM BENZENE WASHER OPERATOR Oxygen Saturation 98% 12/01/2023 8:09 AM BENZENE WASHER OPERATOR Inhaled Oxygen Concentration - - Weight 76.6 kg (168 lb 14.4 oz) 12/01/2023 8:09 AM BENZENE WASHER OPERATOR Height 172.7 cm (5' 8 ) 12/01/2023 8:09 AM BENZENE WASHER OPERATOR Body Mass Index 25.68 12/01/2023 8:09 AM BENZENE WASHER OPERATOR Plan of Treatment Not on file Insurance [facility] Address: [address] [address] [place] [address] [facility] Address: [address] [address] [place] [address] Care Teams Electric Motor Assembler And Tester Relationship Specialty Start Date End Date Vanessa Melgoza PA PCP - General Physician Insulation Extruder Operator 06/02/20
--- OUTSIDE RECORDS SUMMARY | 2025-01-10 09:25 | XMS_ITS | Data Portability ---
Author Organization [facility], Main Office Address [address] [place] [address] Care Team Providers Care Inventory Control Analyst Name Role Phone SIMON NIELSEN Primary Care Provider SIMON NIELSEN Referring Provider Assessment Encounter Date Assessment Date Assessment LastModified [...] + folate, serum or blood 2022 023 [facility], [address], [place], [address], 05:01:27 CMP, serum or plasma 2022 023 [facility], [address], [place], [address], 05:01:27 CBC w/ auto diff 2022 023 [facility], [address], [place], [address], 05:01:27 TSH + free T4, serum 2022 023 [facility], [address], [place], [address], 05:01:27 lipid panel, serum 2022 023 [facility], [address], [place], [address], 3 05:01:27 Referral None recorded. Procedures None recorded. Surgeries None recorded. Imaging None recorded. Medication Orders Strattera 40 mg capsule 2022 023 [id number], [address], [place], [place], [id number], 12:39:04 Patient TargetsNo targets recorded. Patient InstructionsNo instructions recorded. Reason for Referral None Reported. Results Created Date Observation Date Name Description Value Unit Range Abnormal Flag Note LastModifiedBy Organization Detail LastModifiedTime 12/12/19 23 XR, ankle No observ ation record ed. [email or web address] Not Available 2022 17:19:37 Result Notes None recorded. Problems Name Problem SNOMED Code Status Onset Date Resolution Date Notes Provider Name and Address Organization Details Recorded Time Mixed anxiety and depressive disorder 056966732 Active 2021 Not Available [facility] 3 21:51:47 External hemorrhoids 83721241 Active 2021 Not Available [facility] 3 21:51:47 Anxiety 67079951 Active 2021 Not Available [facility] 3 21:51:47 Vitamin B12 deficiency (non anemic) 54647791 Active 2021 Not Available [facility] 3 21:51:47 Poor focus 351107706 Active 2022 GREGORY Chavez [address] [employer], [place], [address] , [facility] 3 12:36:57 Weight gain 6121908 Active 2023 GREGORY Chavez [address], [place], [address] , [employer] 4 14:50:16 Problem Notes None recorded. Procedures Surgical History Date Name Laterality Status Provider Name and Address Organization Details Recorded Time endometrial resection completed Not Available [facility] 12/04/2022 21:50:07 Knee Surgery completed Not Available [facility] 12/04/2022 21:50:07 augmentation mammoplasty completed Not Available [facility] 12/04/2022 21:50:07 Imaging Results Imaging Date Name Status LastModified by Organiz ation Details LastModified Time 12/11/2022 XR, ankle completed Information no t available 12/11/2022 17:19:37 Procedure Notes None recorded. Medical Equipment None Reported. Allergies Allergen ID Allergen Name Allergen Category Reaction Reaction Severity Criticality Documentation Date Start Date Code Code System Note Provider Name and Address Organization Details Recorded Time 91641 cefazolin sodium medicatio n Not available Not available Not available 12/16/2022 1 RxNorm Cristiane mercer, [employer] [facility] 3 11:01:59 Medications Name Sig Start Date [...] every month by subcutane ous route. active [facility]#6 [phone] Not Available Not Available [...] % 98 % 55 /min 16 /min 43993.4 3 g 120 mm[Hg] 70 mm[Hg] Not Available [facility] 3 21:51:12 Date Recorded Body mass index (BMI) Body height Oxygen saturation Oxygen saturation in Arterial blood by Pulse oximetry Heart rate Respiratory rate Body temperature Body weight Systolic blood pressure Diastolic blood pressure Provider Name and Address Organization Details Last Updated DateTime 2 24.3 kg/m2 172.72 cm 97 % 97 % 106 /min 16 /min 97.9 [degF] 87299.3 4 g 118 mm[Hg] 70 mm[Hg] Not Available [facility] 3 21:51:12 Date Recorded Body mass index (BMI) Body height Oxygen saturation Oxygen saturation in Arterial blood by Pulse oximetry Heart rate Respiratory rate Body weight Systolic blood pressure Diastolic blood pressure Provider Name and Address Organization Details Last Updated DateTime 2 23.4 kg/m2 172.72 cm 98 % 98 % 94 /min 16 /min 59674.2 2 g 118 mm[Hg] 80 mm[Hg] Not Available [facility] 3 21:51:12 Date Recorded Body height Body mass index (BMI) Body weight Provider Name and Address Organization Details Last Updated DateTime 12/16/2022 175.26 cm 22.2 kg/m2 43417.86 g Cristiane Carreon [facility] 12/16/2022 11:00:49 Date Recorded Body height Body temperature Body mass index (BMI) Body weight Respiratory rate Oxygen saturation Oxygen saturation in Arterial blood by Pulse oximetry Heart rate Systolic blood pressure Diastolic blood pressure Provider Name and Address Organization Details Last Updated DateTime 3 175.26 cm 98 [degF] 23 kg/m2 24692.4 1 g 16 /min 98 % 98 % 82 /min 118 mm[Hg] 72 mm[Hg] JAMES Cook [facility] 3 12:06:36 Social History Question Answer Notes LastModified by Organizat ion Details LastModified Time Tobacco Smoking Status Never Smoker Not Available [facility] 12/04/2022 21:49:57 What Is Your Level Of Alcohol Consumption? Moderate [id number] Information not available 12/04/2022 What Is Your Level Of Caffeine Consumption? Heavy MIGRATION.[id number] 2118 Information not available 12/04/2022 How Much Tobacco Do You Chew? None MIGRATION.189846 0048 Information not available 12/04/2022 In The 14 Days Before Symptom Onset, Have You Had Close Contact With A Laboratory-confir med COVID-19 While That Case Was Ill? No MIGRATION.444595 3178 Information not available 12/04/2022 In The 14 Days Before Symptom Onset, Have You Had Close Contact With A Person Who Is Under Investigation For COVID-19 While That Person Was Ill? No MIGRATION.594842 0310 Information not available 12/04/2022 Are You Currently Employed? Yes [email or web address] Information not available 01/21/2023 What Type Of Diet Are You Following? REGULAR MIGRATION.583665 7736 Information not available 12/04/2022 Do You Or Have You Ever Used E-cigarettes Or Vape? Never Used Electronic Cigarettes MIGRATION.544081 6220 Information not available 12/04/2022 What Is Your Occupation? [employer] MIGRATION.590992 9123 Information not available 12/04/2022 Have There Been Any Changes To Your Family Or Social Situation? No MIGRATION.405340 9218 Information not available 12/04/2022 Do You Use Insect Repellent Routinely? No MIGRATION.968011 3335 Information not available 12/04/2022 What Was The Date Of Your Most Recent Tobacco Screening? 12/16/2022 [email or web address] Information not available 12/16/2022 What Is Your Relationship Status? MIGRATION.247316 9379 Information not available 12/04/2022 Do You Use Your Seat Belt Or Car Seat Routinely? Yes MIGRATION.152450 9586 Information not available 12/04/2022 Do You Have Smoke And Carbon Monoxide Detectors In Your Home? Yes MIGRATION.211722 6270 Information not available 12/04/2022 Do You Or Have You Ever Used Smokeless Tobacco? Never Used Smokeless Tobacco MIGRATION.829849 8726 Information not available 12/04/2022 How Much Tobacco Do You Smoke? No MIGRATION.737972 6533 Information not available 12/04/2022 Do You Use Any Illicit Or Recreational Drugs? No MIGRATION.877068 7052 Information not available 12/04/2022 Do You Use Sunscreen Routinely? Yes MIGRATION.201386 7735 Information not available 12/04/2022 How Many Years Have You Smoked Tobacco? 0 MIGRATION.934011 2367 Information not available 12/04/2022 Have You Recently Traveled Abroad? No MIGRATION.144575 9386 Information not available 12/04/2022 Do You Have Any Dietary Restrictions? No MIGRATION.593454 2646 Information not available 12/04/2022 Do You Or Have You Ever Used Any Other Forms Of Tobacco Or Nicotine? No MIGRATION.694359 7853 Information not available 12/04/2022 Sex: Unknown Functional Status Question Answer Note LastModified by Organizat ion Details LastModified Time What is your exercise level? Moderate [id number].[id number] 6 Information not available 12/04/2022 Mental Status None recorded. Family History Relationship Description Onset Age of this Age Resolved Age Notes LastModified by Organization Details LastModified Time Mother Hypertensive disorder [id number] Not available 12/04/2022 21:50:09 Mother Alcoholism [email or web address] Not avail able 12/16/2022 10:46:28 Mother Gastroesopha geal reflux disease [email or web address] Not available 12/16 10:46:28 Father Heart disease MIGRATION.445 [id number] Not available 12/04/2022 21:50:09 Father Alcoholism Not avail able 12/16/2022 10:46:28 Father Family history of malignant neoplasm [email or web address] Not available 12/16 11:03:26 Father Hypertensive disorder [email or web address] Not available 12/16 11:03:34 Unspecified Relation Cerebrovascu lar accident Not available 10:46:28 Maternal Grandmother Complication of anesthesia [email or web address] Not available 12/04 11:03:09 Medical History Condition [...] SNOMED-CT Code Diagnosis ICD10 Code Diagnosis Note [id number] [facility] [address] [place] [address] 04/06/2021 00:00:00 04/22/2021 00:31:23 [id number] [facility] [address] [place] [address] 05/14/2021 00:00:00 06/05/2021 06:55:39 [id number] [facility] [address] [place] [address] 06/27/2021 00:00:00 06/27/2021 17:45:32 [id number] [facility] [address] [place] [address] 04/16/2022 00:00:00 05/05/2022 16:39:56 [id number] [facility] [address] [place] [address] 05/24/2022 00:00:00 06/02/2022 13:37:08 [id number] [facility] [address] [place] [address] 09/24/2022 00:00:00 10/02/2022 11:00:57 [id number] Fariba Oden NP [facility] [address] [facility] [place] [address] 12/16/2022 10:43:15 12/16/2022 11:30:39 [id number] GREGORY Chavez [facility] [address] [place] [address] 01/22/2023 12:01:27 01/22/2023 12:46:21 Vitamin B12 deficiency (non anemic) 02907558 E53.8 screening b12 and folate due. Cholesterol screening 27 7208513 Z13.220 fasting lipids due Long-term drug therapy 295157199 Z79.899 routine CBC, CMP and TFTs due Poor focus 075098719 H52 .7 trial of strattera 40mg daily Mixed anxi ety and depressive disorder 477099679 F41.8 stable on lexapro 20mg daily and wellbutrin XL 300mg daily. Adult heal th examination 969431611 Z00.01 well exam completed Health Concerns Section Related Observation LastModified by Organization Detai ls LastModified Time None Recorded Concern Status LastModified by Organization Details LastModified Time None Recorded Advance Directives Directive None Recorded Payers Encounter Date Sequence Insurance Name Policy Number Policy Becerra Covered Member ID Becerra Member ID Guarantor Name 12/16/[address] [facility] [id number] Eddie Basilio [id number] Eddie Basilio 01/22/[address] [facility] [id number] Eddie Basilio [id number] Eddie Basilio Notes Date Note Type Note [...] decisions;low self-esteem;despair/h opelessness;social withdrawal;poor concentration Not Available [facility]ki [facility] 05/05/2022 16:39:56 05/24/2022 text/html Anxiety/Depressi onRep orted [...] She says its helping somewhat. Not Available [employer] [facility] 06/02/2022 13:37:08 09/24/2022 text/html Generic HPI TemplateReported bypatient.Notes:Pt is here bc she has been having hemorrhoids x3 years. States she got them every . Usually they went away on her own but now this time it is external. She says it is bleeding at times. Not Available [facility] 10/02/2022 11:00:57 01/22/2023 text/html Anxiety/Depressi onRep orted [...] set of lab were normal. GREGORY Chavez [address] [place] [address], [place], [address], [employer] [facility] 01/30/2023 22:58:31 OBGyn Episode No OBEpisode recorded.
--- OUTSIDE RECORDS SUMMARY | 2025-01-10 09:25 | XMS_ITS | Clinical Summary ---
Author Organization [facility] Address [address] [place] [address] Care Team Providers Care Stem Roller Operator Name Role Phone Unavailable Primary Care Provider Unavailabl e Source Comments [facility],non-owned Affiliates and Associated Physician Practices is amultiple site organization consisting of ambulatory clinics and hospital sitesin [place], [place] and [place]. This disclosure is being madepursuant to the Care Everywhere program and may not contain all information available regarding this patient. Last updated 18.[facility] Immunizations Name Administration Dates Next Due FLU [...] VACCINE ( - 2023-2 5 season) 2024 DEPRESSION SCREENING 10/06/2024 INFLUENZA VACCINE (Season Ended) 2025 06/24/20 16 ZOSTER VACCINE (1 of 2) 2037 HIB [...]
== END 2025-01-10 08:49 | disposition home or self-care (01) ==
LOC: CHSIMG 08:52
PROVIDERS: PCP Obstetrics & Gynecology; Visit Provider Obstetrics & Gynecology
DX: N64.4 Mastodynia (principal)
CPT/HCPCS: 76641; 77062; 77066; G0279

== ENCOUNTER 2025-04-21 01:30 | Day surgery (SDC) | payer OTHER, SELFPAY ==
--- NOTE | 2025-04-12 17:47 | SUR.PREOP ---
Report to the Outpatient Waiting Room, entrance under the green pavilion located off [facility], at time _0600_ on date _04/21/25_. Planned Procedure Time: _0730_.? Time changes happen often and if your time is changed the preop area will call you the afternoon before. - You and your visitor will be asked to self-screen and do not enter if you have any COVID symptoms. Please call surgeon if you need to reschedule. - A mask is optional within the hospital at this time. Patients may have clear liquids (water, carbonated beverages, clear teas, apple juice) until 3 hours (0430) prior to surgery with a maximum of 20 ounces. - No food from midnight until time of surgery and no smoking, or chewing tobacco (or any form of nicotine). No chewing gum, candy or mints. - Infants may have breast milk until 4 hours before surgery, formula 6 hours prior to surgery. - Children will be allowed to drink immediately following surgery.? If applicable, please bring a bottle or sippy cup to assist with drinking. Juice, water, soda, and popsicles are readily available.? For infants on formula, please bring formula the day of surgery.? Pacifiers are allowed. Take only the following medications with a SIP of water on the morning of surgery: _DESVENLAFAXINE, BUPROPION_ DO NOT STOP ANY OF YOUR OTHER PRESCRIPTION MEDICATIONS PRIOR TO SURGERY EXCEPT THE FOLLOWING Hold all vitamins and supplements for 3 days per anesthesiologist. Medications to discontinue per physician _NA_ Date to take last dose_NA_ Please no make-up, nail moroccan, hairspray, perfume, deodorant, or body powder the day of surgery.? No jewelry (including any body piercings) or valuables the day of surgery, leave them at home.? Please take a shower or bath the night before, or the morning of, surgery with an antibacterial soap.? Wear comfortable, loose fitting clothing.? Children are encouraged to wear pajamas. - Jewelry must be removed prior to entering the operating room.? Rings and piercings that are not removed may be cut off. - The hospital will not accept responsibility for valuables.? - Please leave all valuables, including medications, at home the day of surgery. If you are going home after surgery, a licensed tractor trailer driver must drive you home.? - NO public transportation without another adult if you receive anesthesia. - We recommend that an adult stay with you for 24 hours following discharge. - We also recommend that you do not drive, make important decision, drink alcoholic beverages, or take any drugs that were not prescribed by your health care provider for at least 24 hours after your discharge time. For Pediatric surgeries, we recommend two adults accompany the child home. Follow any additional instructions given to you from your surgeon. Telephone instructions given to _NA_and asked if any additional questions and then verbalized understanding. Patient advised to call surgeon office or pre surgery nurse liaison [phone] if any additional questions.
[2025-04-12 17:56] VITALS: BMI 25.9
[2025-04-21] VITALS (9 sets, daily range): BP systolic 102–131; BP diastolic 59–77; PULSE 55–75; RESP 10–20; TEMP 36–36.7; O2SAT 97–100
--- OUTSIDE RECORDS SUMMARY | 2025-04-21 01:35 | XMS_ITS | Referral Summary ---
Author Organization [facility] Address [address] [place] [address] Care Team Providers Care Exhibits Coordinator Name Role Phone Vanessa Melgoza Primary Care [...] on file Legal Sex Female 8:22 PM KNOCKOUT MACHINE OPERATOR Gender Identity Not on file Sexual Orientation Not on file Last Filed Vital Signs Vital Sign Reading Time Taken Comments Blood Pressure 116/74 12/01/2023 8:09 AM KNOCKOUT MACHINE OPERATOR Pulse 67 12/01/2023 8:09 AM KNOCKOUT MACHINE OPERATOR Temperature 36.8 C (98.3 F) 12/01/2023 8:09 AM KNOCKOUT MACHINE OPERATOR Respiratory Rate 14 12/01/2023 8:09 AM KNOCKOUT MACHINE OPERATOR Oxygen Saturation 98% 12/01/2023 8:09 AM KNOCKOUT MACHINE OPERATOR Inhaled Oxygen Concentration - - Weight 76.6 kg (168 lb 14.4 oz) 12/01/2023 8:09 AM KNOCKOUT MACHINE OPERATOR Height 172.7 cm (5' 8) 12/01/2023 8:09 AM KNOCKOUT MACHINE OPERATOR Body Mass Index 25.68 12/01/2023 8:09 AM KNOCKOUT MACHINE OPERATOR Plan of Treatment Not on file Insurance [facility] CHOICE PLUS [facility] CHOICE PLUS Care Teams Exhibits Coordinator Relationship Specialty Start Date End Date Vanessa Melgoza PA PCP - General Physician Refrigerating Engineer Head 06/02/20
--- OUTSIDE RECORDS SUMMARY | 2025-04-21 01:35 | XMS_ITS | Clinical Summary ---
Author Organization [facility] Address [address] [place] [address] Care Team Providers Care Spare Fixer Name Role Phone Unavailable Primary Care Provider Unavailabl e Source Comments [facility],non-owned Affiliates and Associated Physician Practices is amultiple site organization consisting of ambulatory clinics and hospital sitesin [place], [place], [place] and [place]. This disclosure is being madepursuant to the Care Everywhere program and may not contain all information available regarding this patient. Last updated 18.[facility] Immunizations Immunization Administration Dates Next Due FLU VACCINE QUAD IIV4 PF ID 06/24/2016 Social History Tobacco Use Types Packs/Day Years Used Date Smoking Tobacco: Never Assessed Comments Unknown Sex and Gender Information Value Date Recorded Sex Assigned at Not on file Legal Sex Female 4:07 PM CDT Gender Identity Not on file Sexual Orientation Not on file Plan of Treatment Health Maintenance Due Date Last Done Comments HIV SCREENING 2002 HEPATITIS C SCREENING 02/26/2005 DTAP/TDAP/TD VACCINES (1 - Tdap) 2006 HEPATITIS B VACCINE (1 of 3 - 19+ 3-dose series) 2006 HPV VACCINE (1 - 3-dose SCDM series) 2014 COVID-19 VACCINE ( - 2023-2 5 season) 2024 DEPRESSION SCREENING 10/06/2024 INFLUENZA VACCINE (#1) 2025 06/24/2016 ZOSTER VACCINE (1 of 2) 2037 HIB [...]
--- OUTSIDE RECORDS SUMMARY | 2025-04-21 01:35 | XMS_ITS | Clinical Summary ---
Author Organization [facility] Address [address] [place] [address] Care Team Providers Care Dental Scheduler Name Role Phone Vanessa Melgoza Primary Care [...] on file Legal Sex Female 8:22 PM TAPE CALENDER Gender Identity Not on file Sexual Orientation Not on file Obstetrics History Last Filed Vital Signs Vital Sign Reading Time Taken Comments Blood Pressure 116/74 12/01/2023 8:09 AM TAPE CALENDER Pulse 67 12/01/2023 8:09 AM TAPE CALENDER Temperature 36.8 C (98.3 F) 12/01/2023 8:09 AM TAPE CALENDER Respiratory Rate 14 12/01/2023 8:09 AM TAPE CALENDER Oxygen Saturation 98% 12/01/2023 8:09 AM TAPE CALENDER Inhaled Oxygen Concentration - - Weight 76.6 kg (168 lb 14.4 oz) 12/01/2023 8:09 AM TAPE CALENDER Height 172.7 cm (5' 8) 12/01/2023 8:09 AM TAPE CALENDER Body Mass Index 25.68 12/01/2023 8:09 AM TAPE CALENDER Plan of Treatment Health Maintenance Due Date [...] age to complete this topic Insurance [address] [facility] [address] CHOICE PLUS [facility] CHOICE PLUS [place] [id number] Care Teams Dental Scheduler Relationship Specialty Start Date End Date Vanessa Melgoza PA PCP - General Physician Box Machine Operator 06/02/20
--- OUTSIDE RECORDS SUMMARY | 2025-04-21 01:35 | XMS_ITS | Clinical Summary ---
Author Organization [facility] Address [address] [place] [id number] Care Team Providers Care Dermatologist And Dermatopathologist Name Role Phone Unavailable Primary Care Provider Unavailabl e Encounters Date Type Department Care Team Description 02/02/2025 8:30 AM CDT Laboratory Only [facility] [address] [place] [address] Zachary Finn MD 01/20/2025 Patient Self-Triage [facility] DEFAULT [place] Provider from Last 3 Months Social History Tobacco Use Types Packs/Day Years Used Date Smoking Tobacco: Never Assessed Comments Unknown Sex and Gender Information Value Date Recorded Sex Assigned at Not on file Legal Sex Female 6:52 AM CDT Gender Identity Not on file Sexual Orientation Not on file Plan of Treatment Health Maintenance Due Date Last Done Comments Cervical Cancer Screening Pa p Smear (Age 30 to 64) Every 3 Years 1987 Annual Physical 1990 Hepatitis C 2005 Hepatitis B Vaccines (1 of 3 - 19+ 3-dose series) 2006 Cervical Cancer Screening Pa p with HPV Testing (Age 30 to 64) Every 5 Years 2017 Cervical Cancer Screening wi th HPV 2017 COVID-19 Vaccine (3 - 2023-2 5 season) 2024 09/20/2021, 12/14/2020 DTaP, Tdap and Td Vaccines ( 2 - Td or Tdap) 01/11/2029 01/11/2019 HPV Vaccines Aged Out No longer eligi ble based on patient's age to complete this topic Meningococcal B Vaccine Aged Out No l onger eligible based on patient's age to complete this topic Meningococcal Vaccine Aged Out No pavan shelly eligible based on patient's age to complete this topic Pneumococcal Vaccine: Pediatrics (0 to 5 Years) and At-Risk Patients (6 to 49 Years) Aged Out No longer eligible b ased on patient's age to complete this topic RSV Immunizations Under 20 Months Aged Out No longer eligible b ased on patient's age to complete this topic Procedures Procedure Name Priority Date/Time Associated Diagnosis Comments VITAMIN D, 25 OH Routine 02/02/2025 12:1 0 AM CDT [facility]IR WITH LIPID Routine 02/02/2025 12:10 AM CDT from Last 3 Months Results * (ABNORMAL) HEALTH FAIR WITH LIPID (02/02/2025 12:10 AM CDT) WBC 5.52 4.4 - 11.0 x10'3/uL 02/02/2025 9:38 AM CDT [facility] RBC 4.31(L) 4.50 - 5.10 x10'6/uL 02/02/2025 9:38 AM CDT [facility] HGB 13.5 12.3 - 15.3 G/DL 02/02/2025 9:38 AM CDT [facility] HCT 40.9 35.9 - 44.6 % 02/02/2025 9:38 AM CDT [facility] MCV 94.9 80.0 - 96.0 FL 02/02/2025 9:38 AM CDT [facility] MCH 31.3(H) 25.3 - 30.9 PG 02/02/2025 9:38 AM CDT [facility] MCHC 33.0 31.0 - 34.1 G/DL 02/02/2025 9:38 AM CDT [facility] RDW 12.7 12.4 - 15.1 % 02/02/2025 9:38 AM CDT [facility] PLT 214 151 - 353 x10'3/uL 02/02/2025 9:38 AM CDT [facility] MPV 10.8 9.6 - 12.0 FL 02/02/2025 9:38 AM CDT [facility] RBC MORPHOLOGY NORMAL 02/02/2025 9:38 AM CDT [facility] PLT MORPH. NORMAL 02/02/2025 9:38 AM CDT [facility] WBC MORPHOLOGY NORMAL 02/02/2025 9:38 AM T [facility] LYMPHOCYTES % 33.7 15.8 - 45.0 % 02/02/2025 9:38 AM CDT [facility] NEUTROPHILS % 56.3 42.1 - 71.9 % 02/02/2025 9:38 AM CDT [facility] MONOCYTES % 9.1 5.7 - 12.5 % 02/02/2025 9:38 AM [facility] EOSINOPHILS 0.0 0.0 - 5.6 % 02/02/2025 9:38 AM T [facility] BASOPHILS 0.7 0.0 - 1.3 % 02/02/2025 9:38 AM T [facility] ABS. NEUTROPHILS 3.11 1.40 - 6.00 x10'3/uL 02/02/2025 9:38 AM T [facility] IMMATURE GRANS % 0.2 0.0 - 0.5 % 02/02/2025 9:38 AM T [facility] ABS. LYMPHOCYTES 1.86 0.80 - 4.70 x10'3/uL 02/02/2025 9:38 AM T [facility] GLUCOSE 79 70 - 99 MG/DL 02/02/2025 12:11 PM T [facility] BUN 17 7 - 18 MG/DL 02/02/2025 12:11 PM T [facility] CREATININE S/P/B 0.97 0.55 - 1.02 MG/DL 02/02/2025 12:11 PM T [facility] SODIUM S/P/B 141 136 - 145 MMOL/L 02/02/2025 12:11 PM T [facility] POTASSIUM S/P/B 4.8 3.5 - 5.1 MMOL/L 02/02/2025 12:11 PM T [facility] CHLORIDE S/P/B 107 100 - 108 MMOL/L 02/02/2025 12:11 PM T [facility] CO2 24.1 21 - 32 MMOL/L 02/02/2025 12:11 PM T [facility] CALCIUM S/P/B 9.4 8.5 - 10.1 MG/DL 02/02/2025 12:11 PM T [facility] BILIRUBIN TOTAL S/P/B 0.4 0.2 - 1.2 MG/DL 02/02/2025 12:11 PM T [facility] TOTAL PROTEIN S/P/B 6.9 6.4 - 8.2 G/DL 02/02/2025 12:11 PM [facility] ALBUMIN S/P/B 3.9 3.4 - 5.0 G/DL 02/02/2025 12:11 PM T [facility] AST 21 15 - 37 U/L 02/02/2025 12:11 PM T [facility] ALT 27 14 - 55 U/L 02/02/2025 12:11 PM T [facility] ALKALINE PHOSPHATASE S/P/B 74 50 - 136 U/L 02/02/2025 12:11 PM T [facility] ANION GAP 9.9 5 - 15 MMOL/L 02/02/2025 12:11 PM [facility] BUN CREATININE RATIO 17.5 6 - 26 02/02/2025 12:11 PM [facility] A/G RATIO 1.3 1.0 - 2.0 RATIO 02/02/2025 12:11 PM [facility] GFR ESTIMATE 77(L) >90 ML/MIN/1. 73 M2 02/02/2025 12:11 PM [facility] Comment: NOTE: eGFR is not calculated for patients <18 years of age. This is an estimated GFR calculation using the new CKD EPI creatinine equation without race and so does not require a correction factor for race. This estimated GFR should not be used for calculating drug doses. TSH 1.283 0.358 - 3.74 uIU/ML 02/02/2025 12:11 PM [facility] Comment: HIGH DOSES OF BIOTIN MAY INTERFERE WITH THIS TEST RESULT. CORRELATION TO CLINICAL HISTORY AND PRESENTATION RECOMMENDED. CHOLESTEROL 151 <200.0 MG/DL 02/02/2025 12:11 PM [facility] TRIGLYCERIDES 28 <150 MG/DL 02/02/2025 12:11 PM [facility] HDL 56 >40.0 MG/DL 02/02/2025 12:11 PM [facility] LDL (CALCULATED) 89 <100 MG/DL 02/02/2025 12:11 PM [facility] NON HDL CHOLESTEROL 95 <130 MG/DL 02/02/2025 12:11 PM [facility] CHOL/HDL RATIO 2.7 0.0 - 4.5 02/02/2025 12:11 PM [facility] VLDL CALCULATION 6 5 - 55 MG/DL 02/02/2025 12:11 PM [facility] LIPID INTERPRETATION 02/02/2025 12:11 PM [facility] Comment: [facility] CONCENSUS REPORT RECOMMENDATIONS: ADULT CHILD LOW RISK: CHOLESTEROL <200 <170 TRIGLYCERIDE <150 --- HDL >=60 --- LDL <100 <110 BORDERLINE: CHOLESTEROL 200-239 170-199 TRIGLYCERIDE 150-199 --- HDL 40-59 --- LDL 100-159 110-129 HIGH RISK: CHOLESTEROL >=240 >=200 TRIGLYCERIDE >=200 --- HDL <40 --- LDL >=160 >=130 02/02/2025 12:1 0 AM CDT Zachary Finn MD LABORATORY Final Result Performing Organization Address City/[facility]/ZIP Co de Phone Number [facility] [address] [place] [address], [place] [phone] * (ABNORMAL) VITAMIN D, 25 OH (02/02/2025 12:10 AM CDT) VITAMIN D 25 HYDROXY S/P/B 21(L) 30 - 100 NG/ML 02/02/2025 12:21 PM CDT [facility] Comment: INTERPRETATION DEFICIENT <20 INSUFFICIENT 20-29 SUFFICIENT 30-100 02/02/2025 12:1 0 AM CDT Zachary Finn MD LABORATORY Final Result Performing Organization Address City/[facility]/ZIP Co de Phone Number [facility] [address] [place] [address], [place] [phone] from Last 3 Months Insurance [facility]
[2025-04-21] MEDS: LACTATED RINGERS 1,000 ML 30 ML IV CONT ×2 (06:30→10:06)
--- NOTE | 2025-04-21 06:43 | WPDHPUPDATE1 ---
History and Physical Update Update Date/Time: 04/21/25 06:43 History and Physical has been reviewed, including an updated exam of the patient. There are NO changes in the patient's condition. Risks, benefits, and alternatives have been discussed and questions answered. Patient agrees to proceed with procedure.
--- NOTE | 2025-04-21 06:56 | P.PNAN_ITS ---
Anes - Initial Pre Proc Eval Procedure: Operation Date: 04/21/25 07:30 Proposed Procedures p Removal Bilateral Breast Implants with Capsulectomy, - Manuel Turner MD s Bilateral Breast Mastopexy - Manuel Turner MD Date/Time: 04/21/25 06:56 Surgeon: Manuel Turner MD Pre Op Diagnosis: breast ptosis, hx breast augmentation Patient Data Age: 40 Gender: F Height: 1.75 m Weight: 79.54 kg Allergies Allergy/AdvReac Type Severity Reaction Status Date / Time cefazolin Allergy Mild Rash Verified 04/12/25 17:39 Home Medications ?Medication ?Instructions ?Recorded ?Confirmed ?Type bupropion HCl 100 mg tablet,12 hr 100 mg PO DAILY 05/06/24 04/12/25 History sustained-release desvenlafaxine succinate 100 mg 100 mg PO DAILY 05/06/24 04/12/25 History tablet,extended release 24 hr Laboratory Tests 04/21/25 06:11 Cotinine Negative Patient hx anesthesia problems: post op nausea/vomiting Family hx anesthesia problems: none Results Review: All pre-operative results and documents have been reviewed as part of the pre- operative evaluation. [facility] Past Medical History Medical History Depression Endometriosis Surgical History Surgical History H/O breast augmentation History of repair of anterior cruciate ligament of right knee Hx of laparoscopy for endometriosis Family History Family History Father Hypertension Lung cancer Acute myocardial infarction Mother Hypertension Sibling Arrhythmia Social History Social History Smoking status: Never smoker Second hand tobacco smoke exposure: No Alcohol intake: never Alcohol use details: rarely Substance use: current Substance use type: marijuana Other substance usage details: EDIBLES ON OCCASION Living arrangements: with family Gender identity (if verbalized by the patient): Female Spiritual care concerns: No Anes - Eval Final PreProcedure Day of Procedure 04/21/25 06:56 Patient weight: overweight Heart: regular rate and rhythm Lungs: clear to auscultation Airway: Mallampati scale class II Neurological: alert and oriented Last oral intake: >/= 8 hours ASA classification: II Emergent: no Anesthetic plan: proceed Anesthesia type and monitoring: general LMA and standard monitoring Results Review: All pre-operative results and documents have been reviewed as part of the pre- operative evaluation. Informed Consent: The patient's anesthetic plan and its attendant risks and benefits were discussed with the patient/family/POA. Questions were solicited and answers provided to the satisfaction of the patient/family/POA.
[2025-04-21] MEDS: CLINDAMYCIN 900 MG/D5W 50 ML 900 MG/50 ML PIGGYBACK 50 MG IVPB (07:25)
[2025-04-21] MEDS: SCOPOLAMINE 1 MG PATCH 1 PATCH TRANSDERM (07:29)
[2025-04-21] MEDS: TRANEXAMIC ACID 1,000MG/ISO100 1,000 MG/100 ML BAG 200 MG IVPB (07:30)
[2025-04-21] MEDS: LACTATED RINGERS IRRIG 1,000 ML, LIDOCAINE 1% LOCAL INJ 50 ML, EPINEPHrine HCL INJ 1 MG... INFILTRATE (07:59)
--- NOTE | 2025-04-21 10:13 | P.OP_ITS ---
Procedure Note - Detailed Date of Procedure 04/21/25 Pre-op Diagnosis breast ptosis, hx breast augmentation Post-op Diagnosis Same Procedure Performed Bilateral breast implant removal with mastopexy Surgeon Manuel Turner MD Anesthesia General Findings Bilateral smooth silicone implants Right ruptured, Left intact No worrisome features of capsule. No seroma. Capsule densely adherent to muscle Inverted T Superior medical pedicle Description of Procedure She is here today for bilateral breast mastopexy. Previously and again today the risks, benefits, alternatives were discussed in extensive detail. I wanted her to be very realistic about the risks involved as well as expectations. We discussed aftercare and what to monitor for. Made sure answered all of her questions to her satisfaction today and consent was obtained. Marked in the preoperative holding area with their verification. The patient was taken to the operating room placed supine on the operating table. Anesthesia was provided by anesthesiology. A surgical time-out was taken. She was prepped and draped in a standard sterile fashion. Eleven blade was utilized to make a stab incision and infiltrated with low volume tumescent solution as a block. 10 blade was used to make an incision along the IMF and I continued until I identified the capsule. Entered and bilateral implants removed (findings as above). Capsule densely adherent to the muscle / chest wall. Copiously i rrigated with saline solution on TUR tubing. Changed gloves to make sure no contamination with silicone. I tailor tacked the breast into position. Placed her in a sitting position. Verified the nipple-areolar location based on preoperative planning as well as intraoperative observations and measurements in full agreement. She was placed supine. I de-epithelialized the pedicle. I then de-epithelialized the inferior breast tissue t I closed along the IMF with 2-0 PDS. Along the vertical with 2-0 PDS. I closed around the areola with 3-0 Monocryl. 3-0 Monocryl along the vertical. 3-0 Stratafix along the IMF. I finally closed everything with running subcuticular 4-0 Monocryl and tissue glue. Brijjits placed along vertical scar. Fluffs and surgical bra were placed. Estimated Blood Loss 40 Drains No Packing No Pathology None sent Complications No immediate complications Condition Stable Disposition PACU
[2025-04-21] MEDS: fentaNYL CITRATE INJ (*CRX) 100 MCG/2 ML VIAL 25 MCG IV PUSH ×2 (10:34→10:37)
[2025-04-21] MEDS: oxyCODONE HCL (*CRX) 5 MG TAB IR PO (11:08)
== END 2025-04-21 11:55 | disposition home or self-care (01) ==
PROVIDERS: Visit Provider Surgery Plastic and Reconstructive Surgery
PROC: 0HPT0JZ Removal of Synthetic Substitute from Right Breast, Open Approach (ICD-10-PCS; CPT 19328; principal; 2025-04-21 07:30)
PROC: (CPT 19316; 2025-04-21 07:30)
DX: T85.41XA Breakdown (mechanical) of breast prosthesis and implant, initial encounter (principal); N64.81 Ptosis of breast; Y83.8 Other surgical procedures as the cause of abnormal reaction of the patient, or of later complication, without mention of misadventure at the time of the procedure
CPT/HCPCS: 19328; 19330; 80307; A9270; J0166; J1100; J1171; J1580; J2003; J2250; J2405; J2704; J3010; J7120